=== PATIENT | male | born 1985 | race Caucasian/White ===

== ENCOUNTER 2022-06-30 00:58 | Emergency (ER) | payer OTHER ==
[~2022-06-30] VITALS: Ht 185.4 cm; Wt 77.3 kg
[~2022-06-30 00:58] MED LIST: GABA600T13 PO; ONDA4TAB6 PO
[2022-06-30 01:30] VITALS: BP 131/72
[2022-06-30] MEDS ORDERED: cephalexin 250mg capsule PO ONE (02:45)
[2022-06-30] MEDS ORDERED: bacitracin 15gm ointment TP ONE (02:45)
[2022-06-30] MEDS ORDERED: CEPH-585 PO (04:12)
== END 2022-06-30 04:40 | disposition home or self-care (01) ==
LOC: ER 01:00
DX: L03.116 Cellulitis of left lower limb (principal); R09.81 Nasal congestion; F17.210 Nicotine dependence, cigarettes, uncomplicated; Z86.69 Personal history of other diseases of the nervous system and sense organs; Z88.0 Allergy status to penicillin; Z88.1 Allergy status to other antibiotic agents; Z79.899 Other long term (current) drug therapy
CPT/HCPCS: 71045; 99283

== ENCOUNTER 2023-01-28 17:16 | Emergency (ER) | payer MEDICAID ==
[~2023-01-28] VITALS: Ht 180.3 cm; Wt 79.5 kg
[~2023-01-28 17:16] MED LIST changes: +CEPH-585 PO
[2023-01-28 17:34] VITALS: BP 106/56; PULSE 104; RESP 16; TEMP 98.2; O2SAT 98
== END 2023-01-28 17:45 | disposition home or self-care (01) ==
LOC: ER 17:17
DX: M79.671 Pain in right foot (principal); T39.1X5A Adverse effect of 4-Aminophenol derivatives, initial encounter; T42.4X5A Adverse effect of benzodiazepines, initial encounter; Z88.0 Allergy status to penicillin; Z88.1 Allergy status to other antibiotic agents; Z79.2 Long term (current) use of antibiotics; Z79.899 Other long term (current) drug therapy; Y92.89 Other specified places as the place of occurrence of the external cause
CPT/HCPCS: 99283